=== PATIENT | female | born 1965 | race Caucasian/White ===

== ENCOUNTER 2017-03-26 08:00 | Outpatient (CLI) | payer SELFPAY ==
[2017-03-27 10:53] LABS: CALCIUM 9.5 mg/dL (8.5-10.3); CREATININE 0.6 mg/dL (0.4-1.0); POTASSIUM 4.5 mmol/L (3.5-5.0)
[2017-03-27 11:08] LABS: HEMOGLOBIN A1C 1.25 g/dL
== END 2017-03-26 23:59 | disposition home or self-care (01) ==
LOC: LAB.S 08:00
PROVIDERS: ATTEND Nurse Practitioner Family
DX: E03.9 Hypothyroidism, unspecified (principal); Z71.89 Other specified counseling
CPT/HCPCS: 36415; 80048; 83036

== ENCOUNTER 2020-07-26 17:05 | Outpatient (CLI) | payer BC | END 2020-07-26 17:06 | disposition home or self-care (01) | LOC: COV 17:05 | PROVIDERS: ATTEND Family Medicine | DX: U07.1 COVID-19 (principal) ==